=== PATIENT | male | born 1955 | race Caucasian/White ===

== ENCOUNTER 2022-01-23 07:53 | Outpatient (CLI) | payer MEDICARE, OTHER | END 2022-01-23 07:54 | disposition home or self-care (01) | LOC: TBSIIMAG 07:53 | PROVIDERS: ATTEND Orthopaedic Surgery | DX: M75.41 Impingement syndrome of right shoulder (principal); M19.011 Primary osteoarthritis, right shoulder; S46.211A Strain of muscle, fascia and tendon of other parts of biceps, right arm, initial encounter; M75.101 Unspecified rotator cuff tear or rupture of right shoulder, not specified as traumatic; M65.811 Other synovitis and tenosynovitis, right shoulder ==

== ENCOUNTER 2022-03-07 08:03 | Day surgery (SDC) | payer MEDICARE, OTHER ==
[2022-03-02 14:34] VITALS: BMI 40.7
[2022-03-07 08:59] LABS: SARS-CoV-2 NAA Rapid Test Not Detected (NotDetected)
[2022-03-07] MEDS ORDERED: Fentanyl 250 MCG/5 ML VIAL ONE (09:48)
[2022-03-07] MEDS ORDERED: Midazolam HCl 2 mg/2 ml Vial ONE (09:54)
[2022-03-07] MEDS ORDERED: Ropivacaine 0.2% HCl/PF 20 ML ONE (09:54)
[2022-03-07] MEDS ORDERED: Fentanyl 100 MCG/2 ML VIAL ONE (09:54)
[2022-03-07] MEDS ORDERED: CEFAZOLIN 2 GM VIAL ONE (10:09)
[2022-03-07] MEDS ORDERED: Sodium Chloride 0.9% 100 ML ONE (10:09)
[2022-03-07] MEDS ORDERED: Lidocaine 1% PF 5 ML VIAL ONE (10:33)
[2022-03-07] MEDS ORDERED: Dexamethasone 20 MG/5 ML VIAL ONE (10:33)
[2022-03-07] MEDS ORDERED: PROPOFOL 200 MG/20 ML VIAL ONE (10:33)
[2022-03-07] MEDS ORDERED: PHENYLEPHRINE-NS 100 MCG/ML 10 ML SYRINGE ONE (10:33)
[2022-03-07] MEDS ORDERED: Ropivacaine 0.5% HCl/PF (150 MG/30 ML VIAL) ONE (10:33)
[2022-03-07] MEDS ORDERED: ePHEDrine 50 MG/ML VIAL ONE (10:33)
[2022-03-07] MEDS ORDERED: Rocuronium Bromide 10 MG/ML (10ML VIAL) ONE (10:33)
[2022-03-07] MEDS ORDERED: Glycopyrrolate 0.2 MG/ML 5 ML SYRINGE ONE (10:33)
[2022-03-07] MEDS ORDERED: NEOSTIGMINE 3 MG/3 ML SYR 3 MG/3 ML SYRINGE ONE (10:33)
[2022-03-07] MEDS ORDERED: Ondansetron PF 4 MG/2 ML Vial ONE (10:33)
[2022-03-07] MEDS ORDERED: Promethazine HCl 25 MG/ML VIAL ONE (12:01)
[2022-03-07] MEDS ORDERED: Ondansetron PF 4 MG/2 ML Vial IVP PRN (12:45)
[2022-03-07] MEDS ORDERED: HYDROcodone/Acetaminophen 5/325 mg Tablet PO PRN ×2 (12:45)
[2022-03-07] MEDS ORDERED: Ketorolac Tromethamine 30 MG/ML VIAL IVP PRN (12:45)
[2022-03-07] MEDS ORDERED: Promethazine HCl 25 MG/ML VIAL IM PRN (12:45)
[2022-03-07] MEDS ORDERED: traMADol HCl 50 MG TAB PO PRN ×2 (12:45)
[2022-03-07] MEDS ORDERED: Ropivacaine 0.2% 550 ML 550 ML NERVE BLCK SCH (12:45)
[2022-03-07] MEDS ORDERED: Zolpidem Tartrate 5 MG TAB PO PRN (12:45)
== END 2022-03-07 14:44 | disposition home or self-care (01) ==
LOC: SDC 08:03
PROVIDERS: ATTEND Orthopaedic Surgery
PROC: 0LQ10ZZ Repair Right Shoulder Tendon, Open Approach (ICD-10-PCS; principal; 2022-03-07)
PROC: 0RNJ0ZZ Release Right Shoulder Joint, Open Approach (ICD-10-PCS; 2022-03-07)
PROC: 0LS30ZZ Reposition Right Upper Arm Tendon, Open Approach (ICD-10-PCS; 2022-03-07)
PROC: 0RHJ04Z Insertion of Internal Fixation Device into Right Shoulder Joint, Open Approach (ICD-10-PCS; 2022-03-07)
DX: M75.101 Unspecified rotator cuff tear or rupture of right shoulder, not specified as traumatic (principal); M75.41 Impingement syndrome of right shoulder; M17.12 Unilateral primary osteoarthritis, left knee; E11.9 Type 2 diabetes mellitus without complications; I10 Essential (primary) hypertension; E78.5 Hyperlipidemia, unspecified; N52.9 Male erectile dysfunction, unspecified; E66.01 Morbid (severe) obesity due to excess calories; Z68.41 Body mass index [BMI] 40.0-44.9, adult; Z87.891 Personal history of nicotine dependence; Z79.82 Long term (current) use of aspirin; Z79.84 Long term (current) use of oral hypoglycemic drugs; Z79.899 Other long term (current) drug therapy; Z20.822 Contact with and (suspected) exposure to COVID-19
CPT/HCPCS: 23410; 23430; A4306; U0002; C1713; J1100; J2250; J2405; J2550; J2704; J2795; J3010; J3490

== ENCOUNTER 2025-02-09 07:43 | Outpatient (CLI) | payer MEDICARE, OTHER | END 2025-02-09 07:44 | disposition home or self-care (01) | LOC: LABBT 07:43 | PROVIDERS: ATTEND Internal Medicine Cardiovascular Disease | DX: Z01.810 Encounter for preprocedural cardiovascular examination (principal); I48.0 Paroxysmal atrial fibrillation | CPT/HCPCS: 93005; 93010 ==

== ENCOUNTER 2025-02-10 06:01 | Day surgery (SDC) | payer MEDICARE, OTHER ==
[2025-02-09 08:18] VITALS: BMI 35.6
[2025-02-09 09:24] LABS: #Basophils 0.04 10x3/uL (0.0-0.2); #Eosinophils 0.23 10x3/uL (0.0-0.7); #Monocytes 0.82 10x3/uL (0.11-0.59); #Neutrophils 3.86 10x3/uL (1.40-6.50); %Basophils 0.6 % (0.0-1.0); %Eosinophils 3.7 % (0.0-10.0); %Lymphocytes 20.7 % (21.0-51.0); %Monocytes 13.1 % (0.0-10.0); %Neutrophils 61.4 % (42.0-75.0); Hematocrit 44.7 % (42.0-52.0); Hemoglobin 15.2 g/dL (14.0-18.0); Mean Corpuscular Hemoglobin 30.2 pg (27.0-31.0); Mean Corpuscular Volume 88.9 fL (78.0-98.0); Platelet Count 192 10x3/uL (130-400); Red Blood Cell (RBC) Count 5.03 mill/uL (4.70-6.10); White Blood Cell (WBC) Count 6.28 10x3/uL (4.8-10.8)
[2025-02-09 09:43] LABS: ALT (SGPT) 15 U/L (Less than 45); AST (SGOT) 21 U/L (11-34); Albumin 4.2 g/dL (3.1-4.5); Alkaline Phosphatase 51 U/L (40-110); Anion Gap 15 mmol/L (10-20); BUN (Urea Nitrogen) 11 mg/dL (8.4-25.7); Bilirubin, Total 0.9 mg/dL (0.3-1.2); Calc. Creatinine Clearance 0 mL/min (70-130); Calcium 9.5 mg/dL (7.8-10.44); Carbon Dioxide 24 mmol/L (23-31); Chloride 106 mmol/L (98-107); Globulin 3.0 g/dL (2.4-3.5); Glucose 129 mg/dL (83-110); Potassium 3.8 mmol/L (3.5-5.1); Sodium 141 mmol/L (136-145)
[2025-02-10 05:13] LABS: Myoglobin, Serum 40.0 ng/mL (28-72)
[2025-02-10] MEDS ORDERED: Heparin 10,000 UNITS/ 10 ML VIAL ONE (06:48)
[2025-02-10] MEDS ORDERED: Isoproterenol 0.2 MG/1 ML AMP ONE (06:49)
[2025-02-10] MEDS ORDERED: Etomidate 40 MG (20 mL) VIAL ONE (07:53)
[2025-02-10] MEDS ORDERED: Lidocaine 1% PF 5 ML VIAL ONE ×2 (07:54)
[2025-02-10] MEDS ORDERED: Phenylephrine 40 MG/NS 250 ML 250 ML ONE (07:59)
[2025-02-10] MEDS ORDERED: PHENYLEPHRINE-NS 100 MCG/ML 10 ML SYRINGE ONE (07:59)
[2025-02-10] MEDS ORDERED: Ondansetron PF 4 MG/2 ML Vial ONE ×2 (08:15)
[2025-02-10] MEDS ORDERED: PROPOFOL 200 MG/20 ML VIAL ONE (08:20)
[2025-02-10] MEDS ORDERED: Rocuronium Bromide 10 MG/ML (10ML VIAL) ONE (08:20)
[2025-02-10] MEDS ORDERED: Glycopyrrolate 0.2 MG/ML 5 ML SYRINGE ONE (09:30)
[2025-02-10] MEDS ORDERED: SUGAMMADEX SODIUM 200 MG/2 ML VIAL ONE (10:28)
[2025-02-10] MEDS ORDERED: fentaNYL PF 100 MCG/2 ML SYRINGE ONE (11:31)
[2025-02-11 10:13] LABS: Hemoglobin,Free - Plasma 4.0 mg/dL (0.0-4.9)
== END 2025-02-10 14:05 | disposition home or self-care (01) ==
LOC: SDC 06:01
PROVIDERS: ATTEND Internal Medicine Cardiovascular Disease
PROC: 4A023FZ Measurement of Cardiac Rhythm, Percutaneous Approach (ICD-10-PCS; principal; 2025-02-10)
PROC: 02583ZZ Destruction of Conduction Mechanism, Percutaneous Approach (ICD-10-PCS; 2025-02-10)
DX: I48.19 Other persistent atrial fibrillation (principal); I48.92 Unspecified atrial flutter; Z96.1 Presence of intraocular lens; Z79.01 Long term (current) use of anticoagulants
CPT/HCPCS: 80053; 83010; 83051; 83874; 85025; 85347 ×2; 86850; 86900; 86901; 93623; 93656; 93657; C1730; C1732; C1733; C1759; C1760 ×2; C1766; C1769; C1893; C1894 ×2; J1100; J1644 ×2; J2405; J2704; J2720; J3010; 93005; 93010